=== PATIENT | female | born 1965 | race Caucasian/White ===

== ENCOUNTER 2023-05-25 18:44 | Emergency (ER) | payer OTHER, SELFPAY ==
[2023-05-25 18:47] VITALS: BP 144/93; PULSE 109; RESP 18; TEMP 36.7; O2SAT 100; BMI 29.1
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
[2023-05-25] MEDS: Diphth,Pertuss(Acell),Tet Vac 0.5 ML Vial IM (22:35)
[2023-05-25] MEDS: Ondansetron ODT 4 MG Tablet PO (22:35)
[2023-05-25] MEDS: Oxycodone/Apap 5/325 Tablet PO (22:35)
[2023-05-25] MEDS: Lidocaine 2% (20 ml mdv) 20 ML Vial INFILT (22:35)
[2023-05-26 01:57] VITALS: PULSE 74; RESP 17; O2SAT 98
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
[2023-05-26] MEDS: Amox/Clavulanate 875 MG Tablet PO (02:10)
[2023-05-26] MEDS: Oxycodone/Apap 5/325 Tablet PO (02:10)
--- NOTE | 2023-05-27 10:21 | ED.RN ---
PT CALLS INTO ED REQUESTING MEDICAL RECORDS. PT INFORMED THAT SHE NEEDS TO SIGN A RELEASE OF INFORMATION UPON CLAIMING HER RECORD. PT REPORTS THAT SHE WILL BE IN TO HAND PLEATER HER PAPERWORK TODAY OR TOMORROW.
== END 2023-05-26 02:14 | disposition home or self-care (01) ==
PROVIDERS: Emergency Provider Emergency Medicine; Visit Provider Emergency Medicine
DX: S62.621B Displaced fracture of middle phalanx of left index finger, initial encounter for open fracture (principal); S52.502A Unspecified fracture of the lower end of left radius, initial encounter for closed fracture; S63.283A Dislocation of proximal interphalangeal joint of left middle finger, initial encounter; S66.323A Laceration of extensor muscle, fascia and tendon of left middle finger at wrist and hand level, initial encounter; V44.5XXA Car driver injured in collision with heavy transport vehicle or bus in traffic accident, initial encounter; Z23 Encounter for immunization
CPT/HCPCS: 29125; 12002; 73110; 73130; 90715; 99285